=== PATIENT | male | born 1980 | race Caucasian/White ===

== ENCOUNTER 2017-02-11 04:31 | Emergency (ER) | payer SELFPAY ==
[~2017-02-11] VITALS: Ht 180.3 cm; Wt 122.0 kg
[~2017-02-11 04:31] MED LIST: CYCL-36 PO; IBUP800 PO; PRED50TA PO; TRAM50TA PO
[2017-02-11 04:34] VITALS: BP 139/86; PULSE 80; RESP 18; TEMP 97.5; O2SAT 97
[2017-02-11] MEDS ORDERED: ROBA750T PO (04:51)
[2017-02-11] MEDS ORDERED: HYDR-3533 PO (04:51)
[2017-02-11] MEDS ORDERED: DICL75TA PO (04:51)
--- NOTE | 2017-02-11 04:57 | PD ---
HPI Chief Complaint: Back/ Neck Pain or Injury Time Seen by Provider: 04:56 Travel History International Travel<30 days: No Contact w/Intl Traveler<30days: No Traveled to known affect area: No History of Present Illness HPI 36-year-old white male presents emergency Department with complaints of lower back pain. He states that is been sick now for the past 3 days. This started off after lifting a pot of boiled potatoes. He states that he felt a pull in his right lower back. He states that it has been more progress worse with certain movements. He states the pain is sharp and stabbing. Pain is moderate but can be severe at times. History of sciatica in the past but no radicular complaints today. PFS Past Medical History Narrative Medical Asthma, back pain with sciatica, left knee injury, inguinal hernia Asthma: Yes (" CHILD,OUTGREW") Diminished Hearing: No Kidney Stones: Yes Musculoskeletal: Yes (SCIATICA) Respiratory: Yes Immunizations Current: Yes Tetanus Vaccination: < 5 Years Past Surgical History Narrative Surgical hERNIORRHAPHY Appendectomy: No Cholecystectomy: No Joint Replacement: No Other Surgery: Yes (right hernia repair 2003) Social History Alcohol Use: Yes (RARE) Tobacco Use: Yes (1PPD) Substance Use: No Allergies-Medications (Allergen,Severity, Reaction): Coded Allergies: Morphine (Verified Allergy, Intermediate, Nausea/Vomiting HIVES, 02/11/17) Uncoded Allergies: LISTERINE (Allergy, Intermediate, HIVES, 03/06/13) Reported Meds & Prescriptions Reported Meds & Active Scripts Active Lortab (Hydrocodone-Acetaminophen) 5-325 Mg Tab 1 Tab PO Q4H PRN Robaxin (Methocarbamol) 750 Mg Tab 1,500 Mg PO TID [address] (Diclofenac Sodium) 75 Mg Tabdr 75 Mg PO BID Review of Systems Except as stated in HPI: all other systems reviewed are Neg Physical Exam Narrative GENERAL: Well-developed, well-nourished in no apparent distress. Nontoxic appearing. HEAD: Normocephalic, atraumatic. EYES: Pupils equal round and reactive. Extraocular motions intact. No scleral icterus. No injection or drainage. ENT: Nose clear. Throat without erythema, tonsillar hypertrophy or exudate. Uvula midline. Airway patent. NECK: Trachea midline. Supple, nontender, moves head freely. No central bony tenderness or spasm. CARDIOVASCULAR: Regular rate and rhythm without murmurs, gallops, or rubs. RESPIRATORY: Clear to auscultation. Breath sounds equal bilaterally. No wheezes , rales, or rhonchi. GASTROINTESTINAL: Abdomen soft, non-tender, nondistended. No hepato-splenomegaly , or palpable masses. No guarding. EXTREMITIES: No clubbing, cyanosis, or edema. No joint tenderness. BACK: No central bony tenderness to palpation of dorsal lumbar spine. Patient has a right lower thoracic upper lumbar tenderness or spasm. Decreased range of motion. No saddle anesthesia. Without deformity. No flank tenderness. NEUROLOGICAL: Awake, alert and oriented x 3 .Cranial nerves grossly intact. Motor and sensory grossly within normal limits. Normal speech. Data Data Last Documented VS Vital Signs Date Time Temp Pulse Resp B/P Pulse Ox O2 Delivery O2 Flow Rate FiO2 02/11/17 04:34 97.5 80 18 139/86 97 Room Air Orders Orphenadrine Inj (Norflex Inj) (02/11/17 05:00) Promethazine (Phenergan) (02/11/17 05:00) Hydromorphone Pf Inj (Dilaudid Pf Inj) (02/11/17 05:00) MDM Medical Decision Making Medical Screen Exam Complete: Yes Emergency Medical Condition: Yes Medical Record Reviewed: Yes Differential Diagnosis MDM: High Differential diagnoses: Fracture, sprain, strain, HNP, nerve or vascular injury , epidural abscess, pilonidal cyst Narrative Course This is acute back sprain. Patient's given Dilaudid 1 mg IM, Phenergan 25 mg by mouth, and Norflex 60 mg IM Diagnosis Primary Impression: acute back strain Patient Instructions: Narcotic given in the ED, General Instructions Departure Forms: Tests/Procedures, Work Release Special Instructions: No work 3 days Additional Instructions: Rest. Ice for the next 3 days followed by heat . Lortab, Robaxin and Voltaren. Follow-up with a primary care doctor in one week. Return to the ER for emergencies. Med/Other Pt SpecificInfo: Prescription(s) given Scripts Hydrocodone-Acetaminophen (Lortab)5-325 Mg Tab1 Tab PO Q4H PRN (PAIN) #12 TAB Prov:Nando Rachel MD 02/11/17 Methocarbamol (Robaxin)750 Mg Tab1,500 Mg PO TID 10 Days Prov:Nando Rachel MD 02/11/[address] 75 Mg Tabdr75 Mg PO BID #20 TAB Prov:Nando Rachel MD 02/11/17 Disposition: 01 DISCHARGE HOME Condition: Stable Bruce Chaney Feb 11, 2017 04:57
[2017-02-11] MEDS ORDERED: ORPHENADRINE INJ 60 MG/2 ML AMP IM ONE (05:00)
[2017-02-11] MEDS ORDERED: HYDROmorphone HCL PF 1 MG/ML VIAL IM ONE (05:00)
[2017-02-11] MEDS ORDERED: PROMETHAZINE HCL 25 MG TAB PO ONE (05:00)
== END 2017-02-11 05:35 | disposition home or self-care (01) ==
LOC: NEPD 04:31
DX: S39.012A Strain of muscle, fascia and tendon of lower back, initial encounter (principal); F17.210 Nicotine dependence, cigarettes, uncomplicated; X50.0XXA Overexertion from strenuous movement or load, initial encounter
CPT/HCPCS: 96372; 99284; J1170; J2360; Q0169

== ENCOUNTER 2017-03-28 08:10 | Emergency (ER) | payer SELFPAY ==
[~2017-03-28] VITALS: Ht 182.9 cm; Wt 125.0 kg
[~2017-03-28 08:10] MED LIST changes: -CYCL-36 PO; +DICL75TA PO; +HYDR-3533 PO; -IBUP800 PO; -PRED50TA PO; +ROBA750T PO; -TRAM50TA PO
[2017-03-28 08:14] VITALS: BP 155/90; PULSE 98; RESP 18; TEMP 98; O2SAT 99
--- NOTE | 2017-03-28 08:23 | PD ---
HPI Chief Complaint: Back/ Neck Pain or Injury Time Seen by Provider: 08:22 Travel History International Travel<30 days: No Contact w/Intl Traveler<30days: No Traveled to known affect area: No History of Present Illness HPI 36 YO M with PMH of sciatica presents to the ED for evaluation of 2 day history of shooting left heel pain. Worsened by ambulation. Radiates into the calf, outer thigh and left lower back. Patient denies numbness or weakness of the extremity. Denies saddle anesthesia or incontinence. States that the heel pain is new, but the other symptoms are similar to sciatica flares. 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 Treated with ibuprofen at 3 AM today with only mild improvement of symptoms. PFSH Past Medical History Asthma: Yes (" CHILD,OUTGREW") Diminished Hearing: No Kidney Stones: Yes Musculoskeletal: Yes (SCIATICA) Respiratory: Yes Immunizations Current: Yes Past Surgical History Appendectomy: No Cholecystectomy: No Joint Replacement: No Other Surgery: Yes (right hernia repair 2003) Social History Alcohol Use: Yes (RARE) Tobacco Use: Yes (1PPD) Substance Use: No Allergies-Medications (Allergen,Severity, Reaction): Coded Allergies: Morphine (Verified Allergy, Intermediate, Nausea/Vomiting HIVES, 03/28/17) Uncoded Allergies: LISTERINE (Allergy, Intermediate, HIVES, 03/06/13) Reported Meds & Prescriptions Reported Meds & Active Scripts Active Diclofenac Sodium DR (Diclofenac Sodium) 75 Mg Tabdr 75 Mg PO BID Flexeril (Cyclobenzaprine HCl) 10 Mg Tab 10 Mg PO TID Review of Systems Except as stated in HPI: all other systems reviewed are Neg Physical Exam Narrative GENERAL: Well-nourished, well-developed obese white male in NAD. SKIN: Focused skin assessment warm/dry. HEAD: Normocephalic. EYES: No scleral icterus. No injection or drainage. NECK: Supple, trachea midline. No JVD or lymphadenopathy. CARDIOVASCULAR: Regular rate and rhythm without murmurs, gallops, or rubs. RESPIRATORY: Breath sounds equal bilaterally. No accessory muscle use. GASTROINTESTINAL: Abdomen soft, non-tender, nondistended. MUSCULOSKELETAL: No cyanosis, or edema. TTP of the midline of the calcaneus. Ambulates with a slight limp. Straight leg raise positive on the left. BACK: No obvious deformity. No CVA tenderness. NO midline TTP. ++ TTP of the paraspinal musculature of the lumbar area and left side, this extends into the sciatic notch. Data Data Last Documented VS Vital Signs Date Time Temp Pulse Resp B/P Pulse Ox O2 Delivery O2 Flow Rate FiO2 03/28/17 08:21 20 03/28/17 08:14 98.0 98 155/90 99 Orders Foot, Heel Only ([id number]) (03/28/17 08:27) Ketorolac Inj (Toradol Inj) (03/28/17 08:30) Methocarbamol Inj (Robaxin Inj) (03/28/17 08:30) Acetamin-Hydrocod 325-7.5 Mg ([facility] 7.5 (03/28/17 08:30) MDM Medical Decision Making Medical Screen Exam Complete: Yes Emergency Medical Condition: Yes Differential Diagnosis heel spur versus low back pain versus sciatica versus musculoskeletal pain versus other Narrative Course 36 YO M with PMH of sciatica presents to the ED for evaluation of 2 day history of shooting left heel pain. Worsened by ambulation. Radiates into the calf, outer thigh and left lower back. Patient denies numbness or weakness of the extremity. Denies saddle anesthesia or incontinence. States that the heel pain is new, but the other symptoms are similar to sciatica flares. 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 His exam reveals an obese white male in no acute distress. There is tenderness to palpation in the midline of the calcaneus of the patient's ambulatory with a slight limp. There is no midline tenderness palpation of the back, positive tenderness palpation of the paraspinal musculature in the lumbar area left side extending to the sciatic notch. No deficits in strength bilaterally. Straight leg raise positive on the left. The patient was administered IM Toradol, Norflex and by mouth Lortab. X-ray reveals calcaneal spur. I discussed the results of the workup with the patient. I suspect that his heel pain is exacerbating his sciatica. He is prescribed short course of anti-inflammatories and muscle relaxants and given a few days off work. I is instructed to take the medication as prescribed, return to normal, gentle activities as tolerated, follow up with the primary care provider and the assembler [employer]. He indicated understanding of the instructions and is agreeable to care plan. He is stable and discharged home. Diagnosis Primary Impression: Bone spur of left foot Additional Impression: Sciatica of left side Referrals: Neurologist Primary Care Physician Patient Instructions: General Instructions, Sciatica (ED) Departure Forms: Tests/Procedures, Work Release Enter return to work date: Mar 30, 2017 Additional Instructions: Rest, hydrate. Resume normal, gentle activities as tolerated. No strenuous physical activities for the next few days Take medications as prescribed. Applying ice or heat to areas with sore muscles may help to improve your patient. Do not apply ice/ heat for longer than 20 m/h. Follow-up with your primary care provider this week Return to the ED for any urgent or emergent medical condition. Med/Other Pt SpecificInfo: Prescription(s) given Scripts Diclofenac Sodium DR 75 Mg Tabdr75 Mg PO BID #20 TAB Ref 0 Prov:Dalton Santacruz MD 03/28/17 Cyclobenzaprine (Flexeril)10 Mg Tab10 Mg PO TID #15 TAB Ref 0 Prov:Dalton Santacruz MD 03/28/17 Disposition: 01 DISCHARGE HOME Condition: Stable Pat Dodson Mar 28, 2017 08:23
[2017-03-28] MEDS ORDERED: KETOROLAC TROMETHAMINE 60 MG/2 ML (IM) VIAL IM ONE (08:30)
[2017-03-28] MEDS ORDERED: METHOCARBAMOL 1000 MG/10 ML VIAL IM ONE (08:30)
[2017-03-28] MEDS ORDERED: ACETAMINOPHEN/HYDROcodone 325 MG/7.5 MG TAB PO ONE (08:30)
[2017-03-28] MEDS ORDERED: DICL75TA PO (09:04)
[2017-03-28] MEDS ORDERED: CYCL1TAB29 PO (09:04)
--- NOTE | 2017-03-28 09:21 | RADRPT ---
EXAM DATE/TIME: 03/28/2017 08:58 [facility] COMPARISON: No previous studies available for comparison. INDICATIONS : Pain on plantar surface of calcaneus when weight bearing. MEDICAL HISTORY : None. SURGICAL HISTORY : None. ENCOUNTER: Initial ACUITY: 2 days PAIN SCORE: 9/10 LOCATION: Left Heel FINDINGS: No definite fractures, or dislocations are identified. No definite lytic or sclerotic lesion is seen . CONCLUSION: Unremarkable study. Misa Rodriguez MD on March 28, 2017 at 9:19 Board Certified Radiologist. This report was verified electronically.
== END 2017-03-28 09:46 | disposition home or self-care (01) ==
LOC: NEPD 08:10
DX: M77.52 Other enthesopathy of left foot and ankle (principal); M54.32 Sciatica, left side; F17.210 Nicotine dependence, cigarettes, uncomplicated
CPT/HCPCS: 73650; 96372; 99284; J1885; J2800

== ENCOUNTER 2017-05-23 04:54 | Emergency (ER) | payer SELFPAY ==
[~2017-05-23] VITALS: Ht 182.9 cm; Wt 122.5 kg
[~2017-05-23 04:54] MED LIST changes: +CYCL1TAB29 PO; -HYDR-3533 PO; -ROBA750T PO
[2017-05-23 04:58] VITALS: BP 136/85; PULSE 91; RESP 18; TEMP 97.8; O2SAT 96
--- NOTE | 2017-05-23 05:58 | PD ---
HPI Chief Complaint: Abdominal Pain Time Seen by Provider: 05:23 Travel History International Travel<30 days: No Contact w/Intl Traveler<30days: No Traveled to known affect area: No History of Present Illness HPI The patient is a 36 year old male who presents to the [facility] emergency department with a history of abdominal pain that began two days ago and became much worse upon awakening this AM. When he heard the long clock off, he turned to get out of bed and the pain suddenly became much worse causing him to fall between the bed and wall. The pain is a sharp sensation. The pain is periumbilical and radiates out from his umbilicus bilaterally. It is worse with standing, and better with resting. The pain had been coming and going. The pain is now constant this AM. It is associated with n/vx1. His last BM was last night. He denies having any blood in his stool or black or tarry stools. On review of systems, he denies any recent fevers, cough, congestion, neck pain , chest pain, shortness of breath, urinary symptoms, or neurologic symptoms. [facility] Past Medical History Narrative Medical The patient's past medical history is significant for asthma in childhood, kidney stones, sciatica, right inguinal hernia s/p repair. Asthma: Yes (CHILDHOOD) Diminished Hearing: No Kidney Stones: Yes Musculoskeletal: Yes (SCIATICA) Respiratory: Yes Immunizations Current: Yes Past Surgical History Narrative Surgical The patient's past surgical history is significant for right hernia repair 2005 , knee surgery. Abdominal Surgery: Yes (right hernia repair 2003) Appendectomy: No Cholecystectomy: No Joint Replacement: No Other Surgery: Yes (right hernia repair 2003) Social History Alcohol Use: Yes (RARE) Tobacco Use: Yes (occasionally.) Substance Use: No Allergies-Medications (Allergen,Severity, Reaction): Coded Allergies: morphine (Unverified Allergy, Intermediate, Nausea/Vomiting HIVES, 05/23/17 ) Uncoded Allergies: LISTERINE (Allergy, Intermediate, HIVES, 03/06/13) Reported Meds & Prescriptions Reported Meds & Active Scripts Active Diclofenac Sodium DR (Diclofenac Sodium) 75 Mg Tabdr 75 Mg PO BID Flexeril (Cyclobenzaprine HCl) 10 Mg Tab 10 Mg PO TID Narrative Medication None. Review of Systems Except as stated in HPI: all other systems reviewed are Neg General / Constitutional: No: Fever Eyes: No: Visual changes HENT: No: Headaches Cardiovascular: No: Chest Pain or Discomfort Respiratory: No: Shortness of Breath Gastrointestinal: Positive: Nausea, Vomiting, Abdominal Pain, No: Diarrhea, Hematemesis, Hematochezia, Changes in Bowel Habits, Indigestion, Loss of Appetite Genitourinary: Positive: Frequency (over the last few days), No: Urgency, Dysuria Musculoskeletal: No: Pain Skin: No Rash Neurologic: No: Weakness, Focal Abnormalities, Change in Mentation, Slurred Speech, Sensory Disturbance Psychiatric: No: Depression Endocrine: No: Polydipsia Hematologic/Lymphatic: No: Easy Bruising Physical Exam Narrative General: The patient is a well-developed well-nourished male in no acute distress. Head and Neck exam: Head is normocephalic atraumatic. Eyes: EOMI, pupils are equal round and reactive to light. Nose: Midline septum with pink mucous membranes Mouth: Dentition unremarkable. Moist mucus membranes. Posterior oropharynx is not erythematous. No tonsillar hypertrophy. Uvula midline. Airway patent. Neck: No palpable lymphadenopathy. No nuchal rigidity. No thyromegaly. Cardiovascular: Regular rate and rhythm without murmurs, gallops, or rubs. Lungs: Clear to auscultation bilaterally. No wheezes, rhonchi, or rales. Abdomen: Soft, with tenderness on palpation that is periumbilical and also present in bilateral lower quadrants of the abdomen. The patient has central obesity making it difficult to palpate for masses or organomegaly. No hernia is palpable. No guarding, rebound, or rigidity. Negative Tang's sign. No tenderness specifically on palpation over McBurney's point. Extremities: No clubbing, cyanosis, or edema. 2+ pulses in all 4 extremities. No calf tenderness on palpation. Back: No spinous process tenderness to palpation. No costovertebral angle tenderness to palpation. Neurologic Exam: Grossly nonfocal. Skin Exam: No rash noted. Intact skin that is warm and dry. Genital exam: No genital lesions or rash noted. No scrotal swelling on examination. However , the patient does have pain along the posterior aspect of the right testicle and into the inguinal canal. No palpable testicle masses. No palpable hernia. Data Data Last Documented VS Vital Signs Date Time Temp Pulse Resp B/P (MAP) Pulse Ox O2 Delivery O2 Flow Rate FiO2 05/23/17 06:43 84 18 145/90 (108) 98 Room Air 05/23/17 04:58 97.8 Orders Orders Electrocardiogram (05/23/17 06:05) Complete Blood Count With Diff (05/23/17 06:05) Comprehensive Metabolic Panel (05/23/17 06:05) Prothrombin Time / Inr (Pt) (05/23/17 06:05) Act Partial Throm Time (Ptt) (05/23/17 06:05) C-Reactive Protein (Crp) (05/23/17 06:05) Lipase (05/23/17 06:05) Urinalysis - C+S If Indicated (05/23/17 06:05) Ct Abd/Pel W Iv Contrast(Rout) (05/23/17 06:05) Iv Access Insert/Monitor (05/23/17 06:05) Ecg Monitoring (05/23/17 06:05) Oximetry (05/23/17 06:05) Ondansetron Inj (Zofran Inj) (05/23/17 06:15) Sodium Chlor 0.9% 1000 Ml Inj (Ns 1000 M (05/23/17 06:15) Hydromorphone Pf Inj (Dilaudid Pf Inj) (05/23/17 06:15) Labs Laboratory Tests Test 05/23/17 06:30 White Blood Count 7.9 TH/MM3 Red Blood Count 4.93 MIL/MM3 Hemoglobin 15.3 GM/DL Hematocrit 44.8 % Mean Corpuscular Volume 90.9 FL Mean Corpuscular Hemoglobin 31.1 PG Mean Corpuscular Hemoglobin Concent 34.2 % Red Cell Distribution Width 12.7 % Platelet Count 208 TH/MM3 Mean Platelet Volume 8.5 FL Neutrophils (%) (Auto) 59.1 % Lymphocytes (%) (Auto) 30.8 % Monocytes (%) (Auto) 7.1 % Eosinophils (%) (Auto) 2.8 % Basophils (%) (Auto) 0.2 % Neutrophils # (Auto) 4.6 TH/MM3 Lymphocytes # (Auto) 2.4 TH/MM3 Monocytes # (Auto) 0.6 TH/MM3 Eosinophils # (Auto) 0.2 TH/MM3 Basophils # (Auto) 0.0 TH/MM3 CBC Comment DIFF FINAL Differential Comment MDM Medical Decision Making Medical Screen Exam Complete: Yes Emergency Medical Condition: Yes Medical Record Reviewed: Yes Differential Diagnosis Hernia with incarceration, versus urinary tract infection, versus colitis, versus diverticulitis Narrative Course During the course of the patients emergency department visit, the patients history, examination, and differential diagnosis were reviewed with the patient. The patient had IV access obtained and blood work sent for analysis. The patient was placed on a secured entrance monitor with oximetry and blood pressure monitoring. A CT scan of the abdomen and pelvis was ordered. The patient was initially provided a normal saline 1 L IV fluid bolus, hydromorphone 0.5 mg IV, Zofran 4 mg IV. The patients laboratory studies were reviewed and remarkable for a CBC that is within normal limits. CMP, coags, CT scan of the abdomen and pelvis, and urinalysis are pending at the conclusion of my shift. The patient's case will be checked out to the oncoming emergency physician to disposition the patient based on the conclusion of the patient's workup. Diagnosis Primary Impression: Abdominal pain Qualified Codes: R10.30 - Lower abdominal pain, unspecified Lanette Winkler MD May 23, 2017 05:58
[2017-05-23] MEDS ORDERED: HYDROmorphone HCL PF 1 MG/ML VIAL IV PUSH ONE (06:15)
[2017-05-23] MEDS ORDERED: ONDANSETRON HCL 4 MG/2 ML VIAL IV ONE (06:15)
[2017-05-23] MEDS ORDERED: SODIUM CHLOR 0.9% 1000 ML INJ 1,000 ML IV ONE (06:15)
[2017-05-23 06:43] VITALS: BP 145/90; PULSE 84; RESP 18; O2SAT 98
[2017-05-23 06:55] LABS: AUTOMATED NEUTROPHIL # 4.6 TH/MM3 (1.8-7.7); BASOPHIL % 0.2 % (0.0-2.0); EOSINOPHIL # 0.2 TH/MM3 (0-0.4); EOSINOPHIL % 2.8 % (0.0-4.0); HEMATOCRIT 44.8 % (39.0-51.0); HEMO FLAGS DIFF FINAL; LYMPH % 30.8 % (9.0-44.0); LYMPHOCYTE # 2.4 TH/MM3 (1.0-4.8); MEAN CELL VOLUME 90.9 FL (80.0-100.0); MEAN CORPUSCULAR HEMOGLOBIN 31.1 PG (27.0-34.0); MEAN CORPUSCULAR HGB CONC 34.2 % (32.0-36.0); MONO % 7.1 % (0.0-8.0); NEUT % 59.1 % (16.0-70.0); PLATELET COUNT 208 TH/MM3 (150-450); RED BLOOD COUNT 4.93 MIL/MM3 (4.50-5.90); RED CELL DISTRIBUTION WIDTH 12.7 % (11.6-17.2); WHITE BLOOD COUNT 7.9 TH/MM3 (4.0-11.0)
[2017-05-23 07:07] LABS: APTT (PATIENT) 25.8 SEC (24.3-30.1); INTERNATIONAL NORMALIZED RATIO 0.9 RATIO; PROTHROMBIN TIME - PATIENT 9.9 SEC (9.8-11.6)
[2017-05-23 07:14] VITALS: BP 144/80; PULSE 83; RESP 16; O2SAT 97
[2017-05-23 07:18] LABS: ANION GAP 6 MEQ/L (5-15); AST (GOT) 13 U/L (15-37); BICARBONATE 24.9 MEQ/L (21.0-32.0); BLOOD UREA NITROGEN 12 MG/DL (7-18); CHLORIDE 108 MEQ/L (98-107); GLOMERULAR FILTRATION RATE 104 ML/MIN (>89); SODIUM (NA) 139 MEQ/L (136-145)
[2017-05-23 07:21] LABS: ALKALINE PHOSPHATASE 75 U/L (45-117); ALT (GPT) 35 U/L (12-78); TOTAL BILIRUBIN ADULT 0.2 MG/DL (0.2-1.0)
--- NOTE | 2017-05-23 07:35 | PD ---
Data Data Last Documented VS Orders Orders Electrocardiogram (05/23/17 06:05) Complete Blood Count With Diff (05/23/17 06:05) Comprehensive Metabolic Panel (05/23/17 06:05) Prothrombin Time / Inr (Pt) (05/23/17 06:05) Act Partial Throm Time (Ptt) (05/23/17 06:05) C-Reactive Protein (Crp) (05/23/17 06:05) Lipase (05/23/17 06:05) Urinalysis - C+S If Indicated (05/23/17 06:05) Ct Abd/Pel W Iv Contrast(Rout) (05/23/17 06:05) Iv Access Insert/Monitor (05/23/17 06:05) Ecg Monitoring (05/23/17 06:05) Oximetry (05/23/17 06:05) Ondansetron Inj (Zofran Inj) (05/23/17 06:15) Sodium Chlor 0.9% 1000 Ml Inj (Ns 1000 M (05/23/17 06:15) Hydromorphone Pf Inj (Dilaudid Pf Inj) (05/23/17 06:15) Us Testicles W Doppler (05/23/17 07:12) Iohexol 350 Inj (Omnipaque 350 Inj) (05/23/17 08:10) Labs Laboratory Tests Test 05/23/17 06:30 05/23/17 07:16 White Blood Count 7.9 TH/MM3 Red Blood Count 4.93 MIL/MM3 Hemoglobin 15.3 GM/DL Hematocrit 44.8 % Mean Corpuscular Volume 90.9 FL Mean Corpuscular Hemoglobin 31.1 PG Mean Corpuscular Hemoglobin Concent 34.2 % Red Cell Distribution Width 12.7 % Platelet Count 208 TH/MM3 Mean Platelet Volume 8.5 FL Neutrophils (%) (Auto) 59.1 % Lymphocytes (%) (Auto) 30.8 % Monocytes (%) (Auto) 7.1 % Eosinophils (%) (Auto) 2.8 % Basophils (%) (Auto) 0.2 % Neutrophils # (Auto) 4.6 TH/MM3 Lymphocytes # (Auto) 2.4 TH/MM3 Monocytes # (Auto) 0.6 TH/MM3 Eosinophils # (Auto) 0.2 TH/MM3 Basophils # (Auto) 0.0 TH/MM3 CBC Comment DIFF FINAL Differential Comment Prothrombin Time 9.9 SEC Prothromb Time International Ratio 0.9 RATIO Activated Partial Thromboplast Time 25.8 SEC Blood Urea Nitrogen 12 MG/DL Creatinine 0.84 MG/DL Random Glucose 108 MG/DL Total Protein 6.4 GM/DL Albumin 3.5 GM/DL Calcium Level 8.6 MG/DL Alkaline Phosphatase 75 U/L Aspartate Amino Transf (AST/SGOT) 13 U/L Alanine Aminotransferase (ALT/SGPT) 35 U/L Total Bilirubin 0.2 MG/DL Sodium Level 139 MEQ/L Potassium Level 4.0 MEQ/L Chloride Level 108 MEQ/L Carbon Dioxide Level 24.9 MEQ/L Anion Gap 6 MEQ/L Estimat Glomerular Filtration Rate 104 ML/MIN C-Reactive Protein LESS THAN 0.29 MG/DL Lipase 161 U/L Urine Color YELLOW Urine Turbidity CLEAR Urine pH 6.0 Urine Specific [place] 1.029 Urine Protein TRACE mg/dL Urine Glucose (UA) NEG mg/dL Urine Ketones NEG mg/dL Urine Occult Blood NEG Urine Nitrite NEG Urine Bilirubin NEG Urine Urobilinogen 2.0 MG/DL Urine Leukocyte Esterase NEG Urine Calcium Oxalate Crystals RARE /hpf Urine Mucus FEW /lpf Microscopic Urinalysis Comment CULT NOT INDICATED MDM Supervised Visit with DAYNA: No Narrative Course Patient care assumed from Dr. Winkler at 0700. Patient is a 36y/o male presents to the ER for evaluation of abdominal pain. CT scan and US testes pending. I am asked to follow up these imaging studies and disposition the patient appropriately. Last 24 hours Impressions Scrotum Ultrasound 05/23/17711 Signed Impressions: Service Date/Time: Tuesday, May 23, 2017 07:38 - CONCLUSION: 1. Unremarkable ultrasound examination of the testicles. Serafin Alfredo MD Abdomen/Pelvis CT 05/23/17604 Signed Impressions: Service Date/Time: Tuesday, May 23, 2017 08:06 - CONCLUSION: 1. Small periumbilical hernia as above containing only mesentery 2. Stable right inguinal hernia Serafin Alfredo MD Discussed the results with the patient and he was reexamined his abdomen is benign no hernias felt. He would like to go home is been tolerating by mouth fluids and solids in the emergency department. Discussed with him need for follow-up with a generalized surgeon and return to ED criteria. Diagnosis Primary Impression: Abdominal pain Qualified Codes: R10.30 - Lower abdominal pain, unspecified Additional Impression: Hernia Referrals: Bruce Townsend MD [facility] Patient Instructions: General Instructions, Inguinal Hernia (DC) Departure Forms: Tests/Procedures, Work Release Enter return to work date: May 25, 2017 Disposition: 01 DISCHARGE HOME Condition: Stable Mario Cartagena MD May 23, 2017 07:35
[2017-05-23 07:40] LABS: BLOOD, URINE NEG (NEG); CALCIUM OXALATE CRYSTALS,URINE RARE /hpf; GLUCOSE,URINE NEG (NEG); KETONE, URINE NEG (NEG); MUCUS URINE FEW /lpf (OCC); NITRITE,URINE NEG (NEG); URINE COLOR YELLOW (YELLW/STRAW)
[2017-05-23 07:41] LABS: COMMENT (UR) CULT NOT INDICATED; CULTURE IF INDICATED CULT NOT INDICATED
[2017-05-23] MEDS ORDERED: IOHEXOL 350 MG/ML 10 ML VIAL (for RAD DIAG) IVCONTRAST ONE (08:10)
--- NOTE | 2017-05-23 08:24 | RADRPT ---
EXAM DATE/TIME: 05/23/2017 07:38 [facility] COMPARISON: US TESTICLE W/DOPPLER, February 28, 2015, 16:50. INDICATIONS : Testicle pain. MEDICAL HISTORY : Kidney stones. SURGICAL HISTORY : Hernia repair. Left knee replacement. ENCOUNTER: Initial ACUITY: 1 day PAIN SCORE: 5/10 LOCATION: Bilateral testicles. MEASUREMENTS: RIGHT TESTICLE: 3.7 x 2.6 x 5.0cm LEFT TESTICLE: 5.1 x 2.6 x 3.5cm FINDINGS: RIGHT TESTICLE: Homogeneous echotexture without intra or extratesticular mass. Blood flow is symmetric and within no rmal limits. No hydrocele or varicocele. Epididymis is within normal limits. LEFT TESTICLE: Homogeneous echotexture without intra or extratesticular mass. Blood flow is symmetric and within no rmal limits. No hydrocele or varicocele. Epididymis is within normal limits. SCROTUM: Within normal limits. CONCLUSION: 1. Unremarkable ultrasound examination of the testicles. Serafin Alfredo MD on May 23, 2017 at 8:22 Board Certified Radiologist. This report was verified electronically.
[2017-05-23 09:12] VITALS: BP 141/93; PULSE 62; RESP 17; O2SAT 98
--- NOTE | 2017-05-23 10:08 | RADRPT ---
EXAM DATE/TIME: 05/23/2017 08:06 [place] COMPARISON: CT ABDOMEN & PELVIS W CONTRAST, February 26, 2015, 18:16. INDICATIONS : Periumbilical pain for two days IV CONTRAST: 92 cc Omnipaque 350 (iohexol) IV ORAL CONTRAST: No oral contrast ingested. RADIATION DOSE: 23.98 CTDIvol (mGy) MEDICAL HISTORY : Hernia. Renal stones. SURGICAL HISTORY : None. ENCOUNTER: Initial ACUITY: 2 days PAIN SCALE: 5/10 LOCATION: periumbilical TECHNIQUE: Volumetric scanning of the abdomen and pelvis was performed. Using automated exposure control and ad justment of the mA and/or kV according to patient size, radiation dose was kept as low as reasonably achievable to obtain optimal diagnostic quality images. DICOM format image data is available electro nically for review and comparison. FINDINGS: Examination of the lung bases demonstrates no abnormality. No pleural fluid is identified. No pulmona ry nodules are present. The liver and spleen are free of focal defects. The gallbladder and pancreas demonstrate no abnormality. The adrenal glands are normal. The kidneys demonstrate no evidence of amilcar id renal mass or hydronephrosis. No free fluid or abdominal masses are identified. No para-aortic iftikhar nopathy is seen. There is a small periumbilical hernia containing only mesentery with minimal strandi ng adjacent to this this may be symptomatic based on the appearance. Examination of the right lower q uadrant demonstrates no abnormality. The appendix is identified and appears normal. Examination of the pelvis demonstrates no evidence of free fluid or pelvic mass. No abnormally enlarg ed inguinal or retroperitoneal lymph nodes are present. The bladder is unremarkable. Right inguinal h ernia is present and unchanged CONCLUSION: 1. Small periumbilical hernia as above containing only mesentery 2. Stable right inguinal hernia Serafin Alfredo MD on May 23, 2017 at 8:23 Board Certified Radiologist. This report was verified electronically.
[2017-05-23 10:30] VITALS: BP 154/85
--- NOTE | 2017-05-23 14:01 | EKG ---
Date Performed: 05/23/2017 Time Performed: 06:40:13 PTAGE: 36 years EKG: Sinus rhythm NORMAL ECG Compared to prior tracing no significant change PREVIOUS TRACING : 10/04/2011 08.01 DOCTOR: Bc Walls Interpretating Date/Time 05/23/2017 13:59:48
== END 2017-05-23 10:32 | disposition home or self-care (01) ==
LOC: NEPE 04:54
DX: R10.30 Lower abdominal pain, unspecified (principal); Z72.0 Tobacco use
CPT/HCPCS: 74177; 76870; 80053; 81001; 83690; 85025; 85610; 85730; 86140; 93005; 93975; 96361; 96374; 96375; 99285; J1170; J2405; J7030; Q9967

== ENCOUNTER 2018-01-31 07:49 | Emergency (ER) | payer SELFPAY ==
[~2018-01-31 07:49] MED LIST changes: +CYCL10TA PO; -CYCL1TAB29 PO
[2018-01-31 07:54] VITALS: BP 174/81; PULSE 95; RESP 18; TEMP 98; O2SAT 99
[2018-01-31] MEDS ORDERED: IBUP1TAB7 PO (08:19)
[2018-01-31] MEDS ORDERED: CYCL10TA PO (08:19)
--- NOTE | 2018-01-31 08:19 | PD ---
HPI Chief Complaint: Back/ Neck Pain or Injury Time Seen by Provider: 08:02 Travel History International Travel<30 days: No Contact w/Intl Traveler<30days: No Traveled to known affect area: No History of Present Illness HPI Patient is a 37-year-old male presenting to the emergency depart for evaluation of low back pain. Patient states started 3 days ago, there was no preceding injury or trauma. He states he has been taking ibuprofen, last dose was at 5 AM this morning. He denies any bladder bowel incontinence, no saddle paresthesia, no weakness in his extremities. He reports a history of sciatica and states it is consistent with his symptoms that he has had in the past but the pain is worse today. His pain is currently a 7 out of 10, cramping, worse with movement. Symptom onset was gradual, symptoms are moderate in nature. There are no alleviating factors, pain is constant. PFSH Past Medical History Asthma: Yes (CHILDHOOD) Diminished Hearing: No Inguinal Hernia: Yes Kidney Stones: Yes Medical other: Yes (spontaneous internal abdominal bleeding) Musculoskeletal: Yes (SCIATICA) Respiratory: Yes Immunizations Current: Yes Past Surgical History Abdominal Surgery: Yes (right hernia repair 2003) Appendectomy: No Cholecystectomy: No Joint Replacement: No Other Surgery: Yes (right hernia repair 2003) Social History Alcohol Use: Yes (RARE) Tobacco Use: No Substance Use: No Allergies-Medications (Allergen,Severity, Reaction): Coded Allergies: morphine (Unverified Allergy, Intermediate, Nausea/Vomiting HIVES, 05/23/17 ) Uncoded Allergies: LISTERINE (Allergy, Intermediate, HIVES, 03/06/13) Reported Meds & Prescriptions Reported Meds & Active Scripts Active No Active Prescriptions or Reported Medications Review of Systems Except as stated in HPI: all other systems reviewed are Neg Musculoskeletal: Positive: Myalgias, Cramping, Pain Neurologic: No: Paresthesia, Sensory Disturbance Physical Exam Narrative GENERAL: Overweight, well-developed, alert male. Presenting in no acute distress. SKIN: Warm and dry. HEAD: Atraumatic. Normocephalic. EYES: Pupils equal and round. No scleral icterus. No injection or drainage. ENT: No nasal bleeding or discharge. Mucous membranes pink and moist. NECK: Trachea midline. No JVD. CARDIOVASCULAR: Regular rate and rhythm. RESPIRATORY: No accessory muscle use. Clear to auscultation. Breath sounds equal bilaterally. GASTROINTESTINAL: Abdomen soft, non-tender, nondistended. Hepatic and splenic margins not palpable. MUSCULOSKELETAL: Extremities without clubbing, cyanosis, or edema. No obvious deformities. No spinal tenderness or step-off noted. Tenderness to palpation to bilateral paraspinal musculature in the lower lumbar region. NEUROLOGICAL: Awake and alert. No obvious cranial nerve deficits. Motor grossly within normal limits. Five out of 5 muscle strength in the arms and legs. Normal speech. PSYCHIATRIC: Appropriate mood and affect; insight and judgment normal. Data Data Last Documented VS Vital Signs Date Time Temp Pulse Resp B/P (MAP) Pulse Ox O2 Delivery O2 Flow Rate FiO2 01/31/18 07:54 98.0 95 18 174/81 (112) 99 MDM Medical Decision Making Medical Screen Exam Complete: Yes Emergency Medical Condition: Yes Interpretation(s) Vital Signs Date Time Temp Pulse Resp B/P (MAP) Pulse Ox O2 Delivery O2 Flow Rate FiO2 01/31/18 07:54 98.0 95 18 174/81 (112) 99 Differential Diagnosis Muscle strain versus muscle spasm versus sciatica versus radiculopathy versus other Narrative Course Patient is a 37-year-old male presenting with 3 days of low back pain. There are no focal deficits on exam. Exam appears most consistent with an exacerbation of his sciatica, low back strain. 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 Patient is also requesting a work note because he could not go to work today. Patient was encouraged to trial conservative management. He was encouraged to take medications as directed, apply warm heat to the affected area and continue range of motion exercises. He was encouraged to follow-up at the [facility]. Additionally patient can return to emergency department for any new or worsening symptoms. Patient verbalized understanding of these instructions. Patient stable for discharge. Diagnosis Primary Impression: Sciatica of left side Referrals: [facility] Patient Instructions: General Instructions, Muscle Spasm (ED), Muscle Strain ( ED), Sciatica (ED) Departure Forms: Tests/Procedures, Work Release Enter return to work date: Feb 01, 2018 Additional Instructions: Follow-up at the [facility] Take medications as directed Avoid bed rest, avoid exacerbating activities, apply warm heat to affected area , continue range of motion exercises Return to emergency department for any new or worsening symptoms Med/Other Pt SpecificInfo: Prescription(s) given Scripts Cyclobenzaprine (Flexeril) 10 Mg Tab 10 MG PO TID Y for MUSCLE SPASM, #30 TAB 0 Refills Prov: Adina Fulton 01/31/18 Ibuprofen (Ibuprofen) 800 Mg Tab 800 MG PO Q6HR Y for PAIN, #40 TAB 0 Refills Prov: Adina Fulton 01/31/18 Disposition: 01 DISCHARGE HOME Condition: Stable Adina Fulton Jan 31, 2018 08:19
== END 2018-01-31 08:33 | disposition home or self-care (01) ==
LOC: NEPD 07:49
DX: M54.42 Lumbago with sciatica, left side (principal)
CPT/HCPCS: 99283